=== PATIENT | female | born 1990 | race Caucasian/White ===

== ENCOUNTER → 2016-12-11 | Outpatient (CLI) | payer BC ==
--- NOTE | 2016-12-11 08:12 | US ---
EXAMINATION TYPE: US OB <= 14 wk fetus DATE OF EXAM: 12/11/2016 7:51 AM COMPARISON: NONE CLINICAL HISTORY: 26-year-old female Z36 CONFIRM DATES. Date of LMP: 10/01/2016 EXAM PERFORMED: Transabdominal scanning. FINDINGS: EXAM MEASUREMENTS: GESTATIONAL AGE / DATING Physician Established: (10 weeks/1 days) EDC: 07/08/2017 Dates by LMP: (10 weeks/1 days) EDC: 07/08/2017 Dates by First Scan: this is first scan here Dates by Current Scan for: (10 weeks/6 days) EDC: 07/03/2017 MATERNAL ANATOMY Uterus: 11.5 x 5.6 x 8.3 cm Right Ovary: 2.6 x 1.6 x1.7cm Left Ovary: 3.4 x 2.8 x 2.0 cm Post CDS / Adnexa: wnl Presence of free fluid: none Presence of subchorionic bleed: small anechoic area 1.4 x 0.6 x 2.4 cm along the caudal margin of the gestational sac. GESTATION / SURVEY CRL: 3.9 cm (10 weeks/6 days) Yolk Sac (normal less than 6mm): not seen Heart Rate: 159 bpm Rhythm: Normal IUP: Viable IUP IMPRESSION: 1. Single live intrauterine with established gestational age of 10 weeks 1 day by LMP. Curr ent ultrasound biometry is 10 weeks 6 days by crown-rump length. 2. Small 2.4 cm perigestational bleed inferiorly. 3. Complete survey recommended at 18-20 weeks.
[2016-12-11 08:45] LABS: CH 30.3; CHCM 34.7; HCT 38.6 % (34.0-46.0); HDW 2.41; HGB 13.2 gm/dL (11.4-16.0); MCH 30.1 pg (25.0-35.0); MCHC 34.3 g/dL (31.0-37.0); MCV 87.6 fL (80.0-100.0); Mean Platelet Volume 6.9; RBC 4.41 m/uL (3.80-5.40); RDW 12.5 % (11.5-15.5); WBC 6.6 k/uL (3.8-10.6)
[2016-12-11 08:58] LABS: Glucose 76 mg/dL (74-99); Non-African American GFR(MDRD) >60 (>60 ml/min/1.73 sqM)
[2016-12-11 09:28] LABS: Hepatitis B Surface Ag Index 0.08
[2016-12-15 05:44] LABS: HIV-1/HIV-2 Ab Screen NONREAC (NON REAC)
== END | disposition home or self-care (01) ==
LOC: RADUSWWP 07:31
PROVIDERS: ATTEND Obstetrics & Gynecology
DX: O26.811 Pregnancy related exhaustion and fatigue, first trimester (principal); Z3A.11 11 weeks gestation of pregnancy
CPT/HCPCS: 36415; 76801; 82565; 82947; 85027; 86762; 86780; 86850; 86900; 86901; 87340; 87389

== ENCOUNTER → 2017-02-12 | Outpatient (CLI) | payer BC ==
--- NOTE | 2017-02-12 12:22 | US ---
EXAMINATION TYPE: US OB anatomy transabd DATE OF EXAM: 02/12/2017 10:37 AM COMPARISON: December 11, 2016 first trimester ultrasound HISTORY: O36.62X0 Large for Dates TECHNIQUE: Transabdominal (TA) EXAM MEASUREMENTS: GESTATIONAL AGE / DATING Physician Established: not established EDC: not written Dates by LMP: (19 weeks/1 days) EDC: 07/08/2017 Dates by First Scan: (19 weeks/6 days) EDC: 07/03/2017 Dates by Current Scan for: (18 weeks/5 days) EDC: 07/11/2017 SURVEY IUP: Single PLACENTA: Posterior PREVIA: No previa CALLY: 15 cm Normal CERVICAL LENGTH (transabdominal: norm > 3.0cm): 3.6 cm BIOMETRY PRESENTATION: Breech LIE: Longitudinal BPD: 4.1 cm 18 weeks / 2 days HC: 15.5 cm 18 weeks / 3 days AC: 13.6 cm 19 weeks / 0 days FL: 3.0 cm 19 weeks / 1 days ESTIMATED WEIGHT IN GRAMS: 268 grams ESTIMATED WEIGHT IN LBS/OZS: 0 lbs. 9 oz. WEIGHT PERCENTAGE BASED ON ESTABLISHED DATE: 37 % HC/AC: 1.1 Normal FL/AC: 21 Normal HEART RATE: 145 bpm RHYTHM: Normal ANATOMY SEEN (within normal limits): * Lateral Vent (< 1 cm) 0.4 cm * Cisterna Magna (< 1.1 cm) 0.3 cm * Nuchal Fold (< 0.6 cm) 0.2 cm * Cerebellum (varies with age) 18.9 cm Choroid Plexus (bilateral) Midline Falx Cavus Septi Pellucidi Four Chamber Heart Outflow tracts: LVOT/RVOT Stomach Situs Nose / Lips Diaphragm Kidneys (bilateral) Bladder Cord Insert Three Vessel Cord Longitudinal Spine Transverse Spine Arms (bilateral) Legs (bilateral) viable IUP, anterior placenta, age appropiate Single live intrauterine gestation is redemonstrated. The breech presentation to fetus is currently s een. There is no ultrasound evidence for placenta previa. Amniotic fluid index is within normal limit s. biometry measurements are concordant felt within normal limits. During real-time scanning no anatomical abnormality is identified. Still images saved show poor visualization of bilateral kidney s is suboptimal visualization of nose and lips as well as 4 chamber heart and outflow tracts. IMPRESSION: As above
== END | disposition home or self-care (01) ==
LOC: RADUSWWP 09:35
PROVIDERS: ATTEND Obstetrics & Gynecology
DX: O36.62X0 Maternal care for excessive fetal growth, second trimester, not applicable or unspecified (principal); Z3A.19 19 weeks gestation of pregnancy
CPT/HCPCS: 76811

== ENCOUNTER → 2017-03-26 | Outpatient (CLI) | payer BC ==
[2017-03-26 11:19] LABS: CH 30.8; HCT 32.3 % (34.0-46.0); HDW 2.66; HGB 11.2 gm/dL (11.4-16.0); MCH 30.7 pg (25.0-35.0); MCHC 34.7 g/dL (31.0-37.0); MCV 88.6 fL (80.0-100.0); Mean Platelet Volume 7.3; RBC 3.64 m/uL (3.80-5.40); WBC 11.7 k/uL (3.8-10.6)
== END | disposition home or self-care (01) ==
LOC: LABWHC1 09:57
PROVIDERS: ATTEND Obstetrics & Gynecology
DX: Z34.92 Encounter for supervision of normal pregnancy, unspecified, second trimester (principal); Z3A.00 Weeks of gestation of pregnancy not specified
CPT/HCPCS: 36415; 82950; 85027

== ENCOUNTER 2017-04-25 19:32 | Emergency (ER) | payer BC ==
[2017-04-25] MEDS ORDERED: ACETAMINOPHEN TAB 325 MG TAB PO STA (20:06)
--- NOTE | 2017-04-25 20:08 | ED ---
Fever HPI - General Chief Complaint: Fever Stated Complaint: fever/29 wks Time Seen by Provider: 04/25/17 19:45 Source: patient, RN notes reviewed Mode of arrival: ambulatory Limitations: no limitations - History of Present Illness Initial Comments: Patient is a 27-year-old female presents to the emergency room for evaluation of fever. Patient is . Patient states about 29 weeks . Patient states since last night so having on and off fevers. Patient states been taking Tylenol with no relief of symptoms. Patient states she has been having all over body aches, headache and fatigue. Patient states she has a slight cough. Patient denies ear pain, throat pain, abdominal pain, nausea, vomiting, pain or burning during urination, trouble urinating or blood in urine. Patient states she still is feeling the baby move. Patient denies vaginal bleeding or abnormal vaginal discharge. Patient denies neck pain. Patient denies changes in vision. Patient states she took Tylenol around 5:30 this evening and her fever went up instead of down. Patient states because of fever went up she thought she should be evaluated here. - Related Data Home Medications Medication Instructions Recorded Confirmed Old-Qwwx-Jimhh Acid 1 cap PO DAILY 04/25/17 04/25/17 [-U Capsule (formulary)] Previous Rx's Medication Instructions Recorded Cephalexin [Keflex] 500 mg PO Q6HR 7 Days 04/25/17 Allergies Allergy/AdvReac Type Severity Reaction Status Date / Time No Known Allergies Allergy Verified 04/25/17 19:53 Review of Systems ROS Statement: Those systems with pertinent positive or pertinent negative responses have been documented in the HPI. ROS Other: All systems not noted in ROS Statement are negative. Past Medical History Past Medical History: No Reported History History of Any Multi-Drug Resistant Organisms: None Reported Past Surgical History: No Surgical Hx Reported Past Psychological History: No Psychological Hx Reported Smoking Status: Never smoker Past Alcohol Use History: None Reported Past Drug Use History: None Reported General Exam - General Exam Comments Initial Comments: Sitting in exam room, no acute distress. Limitations: no limitations General appearance: alert, in no apparent distress Head exam: Present: atraumatic, normocephalic, normal inspection Eye exam: Present: normal appearance, PERRL, EOMI Pupils: Present: normal accommodation ENT exam: Present: normal exam, mucous membranes moist Neck exam: Present: normal inspection, full ROM. Absent: tenderness, lymphadenopathy Respiratory exam: Present: normal lung sounds bilaterally. Absent: respiratory distress Cardiovascular Exam: Present: normal rhythm, tachycardia, normal heart sounds Extremities exam: Present: normal inspection Back exam: Present: normal inspection Neurological exam: Present: alert, oriented X3, CN II-XII intact, normal gait Psychiatric exam: Present: normal affect, normal mood Skin exam: Present: warm, dry, intact, normal color. Absent: rash Course Vital Signs 04/25/17 04/25/17 04/25/17 19:50 22:22 22:56 Temperature 100.2 F H 98.4 F 98.4 F Pulse Rate 117 H 90 85 Respiratory 18 16 16 Rate Blood Pressure 128/67 127/78 108/70 O2 Sat by Pulse 97 97 97 Oximetry Medical Decision Making - Medical Decision Making Patient is a 27-year-old female presents to the emergency room for evaluation of fever. Patient's WBC significantly elevated. heart tones within normal limits. Patient noted to have urinary tract infection. Patient denies flank pain or abdominal pain. Patient given 2 g of Rocephin IV and will be sent home with antibiotics. Advised patient to return for any worsening symptoms. Patient states she understands everything that was discussed with her. Case discussed with Dr. Shore. - Lab Data Result diagrams: 04/25/17 20:29 04/25/17 20:29 Lab Results 04/25/17 04/25/17 04/25/17 Range/Units 20:29 20:29 20:29 WBC 28.1 H* (3.8-10.6) k/uL RBC 3.48 L (3.80-5.40) m/uL Hgb 10.6 L (11.4-16.0) gm/dL Hct 29.6 L (34.0-46.0) % MCV 85.0 (80.0-100.0) fL MCH 30.5 (25.0-35.0) pg MCHC 35.9 (31.0-37.0) g/dL RDW 12.2 (11.5-15.5) % Plt Count 290 (150-450) k/uL Neutrophils % 90 % Lymphocytes % 4 % Monocytes % 5 % Eosinophils % 0 % Basophils % 0 % Neutrophils # 25.2 H (1.3-7.7) k/uL Lymphocytes # 1.2 (1.0-4.8) k/uL Monocytes # 1.3 H (0-1.0) k/uL Eosinophils # 0.0 (0-0.7) k/uL Basophils # 0.0 (0-0.2) k/uL PT (9.0-12.0) sec INR (<1.1) APTT (22.0-30.0) sec Sodium 128 L (137-145) mmol/L Potassium 3.7 (3.5-5.1) mmol/L Chloride 102 (98-107) mmol/L Carbon Dioxide 18 L (22-30) mmol/L Anion Gap 8 mmol/L BUN 7 (7-17) mg/dL Creatinine 0.59 (0.52-1.04) mg/dL Est GFR (MDRD) Af Amer >60 (>60 ml/min/1.73 sqM) Est GFR (MDRD) Non-Af >60 (>60 ml/min/1.73 sqM) Glucose 95 (74-99) mg/dL Plasma Lactic Acid Rick 0.7 (0.7-2.0) mmol/L Calcium 8.3 L (8.4-10.2) mg/dL Total Bilirubin 0.9 (0.2-1.3) mg/dL AST 30 (14-36) U/L ALT 44 (9-52) U/L Alkaline Phosphatase 143 H (38-126) U/L Total Creatine Kinase (30-135) U/L CK-MB (CK-2) (0.0-2.4) ng/mL CK-MB (CK-2) Rel Index Troponin I (0.000-0.034) ng/mL Total Protein 6.0 L (6.3-8.2) g/dL Albumin 2.9 L (3.5-5.0) g/dL Urine Color Urine Appearance (Clear) Urine pH (5.0-8.0) Ur Specific [place] (1.001-1.035) Urine Protein (Negative) Urine Glucose (UA) (Negative) Urine Ketones (Negative) Urine Blood (Negative) Urine Nitrite (Negative) Urine Bilirubin (Negative) Urine Urobilinogen (<2.0) mg/dL Ur Leukocyte Esterase (Negative) Urine WBC (0-5) /hpf Ur Squamous Epith Cells (0-4) /hpf Amorphous Sediment (None) /hpf Urine Bacteria (None) /hpf Hyaline Casts (0-2) /lpf 04/25/17 04/25/17 04/25/17 Range/Units 20:29 20:29 20:29 WBC (3.8-10.6) k/uL RBC (3.80-5.40) m/uL Hgb (11.4-16.0) gm/dL Hct (34.0-46.0) % MCV (80.0-100.0) fL MCH (25.0-35.0) pg MCHC (31.0-37.0) g/dL RDW (11.5-15.5) % Plt Count (150-450) k/uL Neutrophils % % Lymphocytes % % Monocytes % % Eosinophils % % Basophils % % Neutrophils # (1.3-7.7) k/uL Lymphocytes # (1.0-4.8) k/uL Monocytes # (0-1.0) k/uL Eosinophils # (0-0.7) k/uL Basophils # (0-0.2) k/uL PT 9.8 (9.0-12.0) sec INR 1.0 (<1.1) APTT 28.5 (22.0-30.0) sec Sodium (137-145) mmol/L Potassium (3.5-5.1) mmol/L Chloride (98-107) mmol/L Carbon Dioxide (22-30) mmol/L Anion Gap mmol/L BUN (7-17) mg/dL Creatinine (0.52-1.04) mg/dL Est GFR (MDRD) Af Amer (>60 ml/min/1.73 sqM) Est GFR (MDRD) Non-Af (>60 ml/min/1.73 sqM) Glucose (74-99) mg/dL Plasma Lactic Acid Rick (0.7-2.0) mmol/L Calcium (8.4-10.2) mg/dL Total Bilirubin (0.2-1.3) mg/dL AST (14-36) U/L ALT (9-52) U/L Alkaline Phosphatase (38-126) U/L Total Creatine Kinase 35 (30-135) U/L CK-MB (CK-2) 0.5 (0.0-2.4) ng/mL CK-MB (CK-2) Rel Index 1.4 Troponin I <0.012 (0.000-0.034) ng/mL Total Protein (6.3-8.2) g/dL Albumin (3.5-5.0) g/dL Urine Color Light Yellow Urine Appearance Cloudy H (Clear) Urine pH 6.5 (5.0-8.0) Ur Specific [place] 1.002 (1.001-1.035) Urine Protein Negative (Negative) Urine Glucose (UA) Negative (Negative) Urine Ketones Negative (Negative) Urine Blood Negative (Negative) Urine Nitrite Negative (Negative) Urine Bilirubin Negative (Negative) Urine Urobilinogen <2.0 (<2.0) mg/dL Ur Leukocyte Esterase Large H (Negative) Urine WBC 48 H (0-5) /hpf Ur Squamous Epith Cells 2 (0-4) /hpf Amorphous Sediment Occasional H (None) /hpf Urine Bacteria Many H (None) /hpf Hyaline Casts 1 (0-2) /lpf Disposition Clinical Impression: Urinary tract infection Disposition: HOME SELF-CARE Condition: Good Instructions: Urinary Tract Infection in (ED) Additional Instructions: Taking antibiotics as directed. Tylenol for fever. Drink plenty of fluids. Please follow up with [facility]. If any new symptom arises or symptoms worsen, return to ER as soon as possible. Prescriptions: Cephalexin [Keflex] 500 mg PO Q6HR 7 Days Referrals: Cielo Solis MD [Primary Care Provider] - 1-2 days Christian Mark MD [STAFF PHYSICIAN] - 1-2 days Time of Disposition: 21:33
[2017-04-25] MEDS: SODIUM CHLORIDE 0.9% 500 ML IV SCH ×2 (20:13→20:14)
[2017-04-25 20:41] LABS: Basophils % (A) 0 %; CH 29.9; CHCM 35.4; Eosinophils % (A) 0 %; HCT 29.6 % (34.0-46.0); HDW 2.96; HGB 10.6 gm/dL (11.4-16.0); Luc # (Auto) 0.43; Luc % (Auto) 2; Lymphocytes # (A) 1.2 k/uL (1.0-4.8); Lymphocytes % (A) 4 %; MCH 30.5 pg (25.0-35.0); MCHC 35.9 g/dL (31.0-37.0); Mean Platelet Volume 7.5; Monocytes # (A) 1.3 k/uL (0-1.0); Monocytes % (A) 5 %; Neutrophils # (A) 25.2 k/uL (1.3-7.7); Neutrophils % (A) 90 %; RBC 3.48 m/uL (3.80-5.40); RDW 12.2 % (11.5-15.5); WBC (Perox) 29.97
[2017-04-25 20:48] LABS: Amorphous Sediment,Urine Occasional /hpf; Appearance,Urine Cloudy (Clear); Bacteria,Urine Many /hpf; Bilirubin,Urine Negative (Negative); Glucose,Urine (UA) Negative (Negative); Ketones,Urine Negative (Negative); Leukocyte Esterase,Urine Large (Negative); Nitrite,Urine Negative (Negative); PH, Urine 6.5 (5.0-8.0); Particle Count 19635; Protein,Urine Negative (Negative); Specific Gravity,Urine 1.002 (1.001-1.035); Squamous Epithelial Cell,Urine 2 /hpf (0-4); UA Billing (MACRO vs. MICRO) MICRO; Urobilinogen,Urine <2.0 mg/dL (<2.0); WBC,Urine 48 /hpf (0-5)
[2017-04-25 20:50] LABS: Partial Thromboplastin Time 28.5 sec (22.0-30.0); Prothrombin Time 9.8 sec (9.0-12.0)
[2017-04-25 20:51] LABS: WBC 28.1 k/uL (3.8-10.6)
[2017-04-25] MEDS ORDERED: cefTRIAXone 2,000 MG in SODIUM CHLORIDE 0.9% 100 ML IVPB STA (20:53)
[2017-04-25 21:01] LABS: ALT 44 U/L (9-52); AST 30 U/L (14-36); Alkaline Phosphatase 143 U/L (38-126); Anion Gap 8 mmol/L; Blood Urea Nitrogen 7 mg/dL (7-17); Calcium 8.3 mg/dL (8.4-10.2); Carbon Dioxide 18 mmol/L (22-30); Chloride 102 mmol/L (98-107); Creatine Kinase 35 U/L (30-135); Glucose 95 mg/dL (74-99); Non-African American GFR(MDRD) >60 (>60 ml/min/1.73 sqM); Potassium 3.7 mmol/L (3.5-5.1); Sodium 128 mmol/L (137-145); Total Bilirubin 0.9 mg/dL (0.2-1.3)
[2017-04-25 21:14] LABS: Creatine Kinase MB 0.5 ng/mL (0.0-2.4); Troponin I <0.012 ng/mL (0.000-0.034)
[2017-04-25 22:23] VITALS: RESP 16; TEMP 98.4
[2017-04-25 22:57] VITALS: BP 108/70; PULSE 85
== END 2017-04-25 22:56 | disposition home or self-care (01) ==
LOC: EC 19:32
DX: O23.43 Unspecified infection of urinary tract in pregnancy, third trimester (principal); O99.89 Other specified diseases and conditions complicating pregnancy, childbirth and the puerperium; R00.0 Tachycardia, unspecified; Z3A.29 29 weeks gestation of pregnancy; Z79.899 Other long term (current) drug therapy
CPT/HCPCS: 99284; 96365; 96366; 96361; 36415; 93005; 80053; 82550; 82553; 83605; 84484; 85025; 85610; 85730; 81001; 87040; 87086; J0696

== ENCOUNTER 2017-07-06 21:40 | Inpatient (IN) | payer BC ==
[2017-07-06] MEDS ORDERED: LIDOCAINE 1% (PF) 10 MG/ML (30 ML SDV) SQ PRN (22:23)
[2017-07-06] MEDS ORDERED: OXYTOCIN 10 UNIT/ML 1 ML VIAL IM PRN (22:23)
[2017-07-06] MEDS ORDERED: CARBOPROST TROMETHAMINE 250 MCG/ML 1 ML AMP IM PRN (22:23)
[2017-07-06] MEDS ORDERED: METHYLERGONOVINE 0.2 MG/ML 1 ML AMP IM PRN (22:23)
[2017-07-06] MEDS ORDERED: TERBUTALINE 1 MG/ML VIAL SQ PRN (22:23)
[2017-07-06] MEDS ORDERED: OXYTOCIN 20 UNITS/1000 ML NS 1,000 ML IV SCH ×2 (22:30→22:45)
[2017-07-06 22:34] VITALS: BMI 27.8
[2017-07-06] MEDS ORDERED: AMPICILLIN 2,000 MG in SODIUM CHLORIDE 0.9% 100 ML IVPB STA (22:43)
[2017-07-06 22:44] LABS: Basophils % (A) 0 %; CH 29.6; CHCM 35.5; Eosinophils # (A) 0.1 k/uL (0-0.7); Eosinophils % (A) 0 %; HCT 35.3 % (34.0-46.0); HDW 2.75; HGB 12.2 gm/dL (11.4-16.0); Luc # (Auto) 0.24; Luc % (Auto) 2; Lymphocytes % (A) 15 %; MCHC 34.7 g/dL (31.0-37.0); MCV 83.7 fL (80.0-100.0); Mean Platelet Volume 8.5; Monocytes # (A) 0.7 k/uL (0-1.0); Monocytes % (A) 5 %; Neutrophils # (A) 10.3 k/uL (1.3-7.7); Neutrophils % (A) 77 %; RBC 4.22 m/uL (3.80-5.40); RDW 14.7 % (11.5-15.5); WBC 13.3 k/uL (3.8-10.6); WBC (Perox) 13.99
[2017-07-06] MEDS: LACTATED RINGERS 1,000 ML IV SCH (22:47)
--- NOTE | 2017-07-06 22:57 | P.HPOB ---
History of Present Illness H&P Date: 07/06/17 Chief Complaint: Contractions and leaking of fluid. This patient is a pleasant 27-year-old 2 para 0 female estimated date of confinement 07/08/2017 estimated gestational age 39-5/7 weeks who presents to labor and delivery with complaints of cramping and had some leaking of fluid that started about 11 this morning. Patient's care has been completely uncomplicated. Examination here shows positive amniosure and cervix is 5 cm dilated. I did rupture a fore bag and I did rupture her for clear fluid as well. Review of Systems Constitutional: Denies chills, Denies fever Respiratory: Denies cough Gastrointestinal: Reports heartburn Genitourinary: Reports Menstruation: Reports amenorrhea Past Medical History Past Medical History: No Reported History History of Any Multi-Drug Resistant Organisms: None Reported Additional Past Surgical History / Comment(s): Dilation and curettage. Past Anesthesia/Blood Transfusion Reactions: No Reported Reaction Past Psychological History: No Psychological Hx Reported Smoking Status: Never smoker Past Alcohol Use History: None Reported Past Drug Use History: None Reported - Past Family History Mother Family Medical History: Congestive Heart Failure (CHF), Diabetes Mellitus Father Family Medical History: Diabetes Mellitus Medications and Allergies Home Medications Medication Instructions Recorded Confirmed Type Xgy-Aysc-Uhgrs Acid 1 cap PO DAILY 04/25/17 07/06/17 History [-U Capsule (formulary)] Allergies Allergy/AdvReac Type Severity Reaction Status Date / Time No Known Allergies Allergy Verified 07/06/17 21:47 Exam - Vital Signs Vital signs: Vital Signs Temp Pulse Resp BP Pulse Ox 07/06/17 22:23 97.0 F L 82 18 128/86 98 Intake and Output 07/06/17 07/06/17 07/06/17 06:59 14:59 22:59 Other: Weight 85.729 kg Patient Weight 07/07/17 06:59 Weight 85.729 kg - OBG Physical Exam Abdomen: bowel sounds normal, no diffuse tenderness, no bruit present, no guarding noted, no hepatomegaly, no splenomegaly, no mass Vulva: both: normal Cervix: no lesion (Quinton is 5 cm dilated with a bulging membranes -2 station), no discharge Uterus: enlarged (Fundal height is 39 cm) Results blood work shows she is A positive, rubella low positive, hepatitis B negative, HIV nonreactive, RPR nonreactive, Glucola was normal, group B strep was negative, ultrasounds have been normal. Result Diagrams: 07/06/17 22:30 Abnormal Lab Results - Last 24 Hours (Table) 07/06/17 Range/Units 22:30 WBC 13.3 H (3.8-10.6) k/uL Neutrophils # 10.3 H (1.3-7.7) k/uL Assessment and Plan (1) Third trimester Narrative/Plan: This is a pleasant 27-year-old 2 para 0 female 39-5/7 weeks' gestation with spontaneous rupture membranes and active labor. Since the patient's membranes may have been leaking since 11 this morning I am prophylactically starting her on antibiotics, Pitocin augmentation of labor as necessary and anticipate vaginal delivery. Status: Acute (2) Normal labor Status: Acute
[2017-07-06] MEDS ORDERED: BUPIVACAINE (PF) 0.25% 25 ML, fentaNYL (PF) 200 MCG in SODIUM CHLORIDE 0.9% 71 ML EPIDURAL ONE (23:25)
[2017-07-07] MEDS: LACTATED RINGERS 1,000 ML IV SCH ×4 (02:07→20:23)
[2017-07-07] MEDS: AMPICILLIN 1,000 MG in SODIUM CHLORIDE 0.9% 50 ML IVPB SCH ×2 (03:03→21:27)
--- NOTE | 2017-07-07 06:14 | P.MSEPDOC ---
Presenting Problems - Arrival Data Date of Arrival on Unit: 07/06/17 Time of Arrival on Unit: 21:42 Mode of Transport: Wheelchair - Complaint OB-Reason for Admission/Chief Complaint: Possible Onset of Labor Comment: Reports SROM at 1100 this morning. Medical History - Information : 2 Para: 0 Term: 0 : 0 Abortions: Spontaneous or Elective: 1 Number of Living Children: 0 - Gestational Age Expected Date of Delivery: 07/08/17 Gestational Age by AZRA (wks/days): 39 Weeks and 6 Days Review of Systems - Review of Systems Constitutional: No problems Breast: No problems ENT: No problems Cardiovascular: No problems Respiratory: No problems Gastrointestinal: No problems Genitourinary: No problems Musculoskeletal: No problems Neurological: No problems Skin: No problems Vital Signs - Temperature Temperature: 97.0 F Temperature Source: Temporal Artery Scan - Pulse Right Pulse Rate: 89 Pulse Assessment Method: Pulse Oximetry - Respirations Respiratory Rate: 18 Oxygen Delivery Method: Room Air O2 Sat by Pulse Oximetry: 98 - Blood Pressure Right Arm Blood Pressure: 128/86 Blood Pressure Mean: 100 Blood Pressure Source: Automatic Cuff Medical Screen Scoring (Pre) - Cervical Exam Dilation: 4-7 cm = 2 Effacement: More than 50% = 2 Membranes: Ruptured = 3 - Uterine Contractions Frequency: > 5 minutes apart = 1 Duration: N/A Intensity: N/A - Maternal Vital Signs Maternal Temperature: N/A Maternal Blood Pressure: N/A Signs of Preeclampsia: N/A Maternal Respirations: N/A - Maternal Trauma Maternal Trauma: N/A - Assessment Baseline FHR: 135 Heart Rate - NICHD Category: Category I (Normal) = 0 NST: Reactive Position: N/A Station: N/A - Total Score Total Score (Pre): 8 - Level of Risk Level of Risk: Medium (6-9) Physician Notification (Pre) - Physician Notified Physician Notified Date: 07/06/17 Physician Notified Time: 22:05 Physician/Practitioner Notifed:: Dr. Mark Spoke With: Dr. Mark New Order Received: Yes (admit pt) - Notification Comment Comment: Pt sent to triage per Dr. Mark. Dr. Mark already aware of pt c/o ruptured membranes. Dr. Mark notified of positive amnisure results and cervical exam. Orders to admit pt with antibotics and pit given. Dr. Mark coming in. Disposition - Disposition OB Disposition: Admit Transferred to:: suite 3 I agree with the RN Medical Screening Exam: Yes Risk & Benefit of care provided described in d/c instruction: Yes Diagnosis: ENCOUNTER FOR FULL-TERM UNCOMPLICATED DELIVERY
[2017-07-07] MEDS ORDERED: CITRIC ACID-SODIUM CITRATE 15 ML CUP PO ONE (07:44)
[2017-07-07] MEDS ORDERED: ceFAZolin 2 GM in SODIUM CHLORIDE 0.9% 100 ML IVPB ONE (07:44)
[2017-07-07] MEDS ORDERED: fentaNYL (PF) 50 MCG/ML 2 ML AMP ONE (07:55)
[2017-07-07] MEDS ORDERED: OXYTOCIN 10 UNIT/ML 1 ML VIAL ONE (07:55)
[2017-07-07] MEDS ORDERED: SUCCINYLCHOLINE CHLORIDE 100 MG/5 ML SYR IV ONE (07:55)
[2017-07-07] MEDS ORDERED: METHYLERGONOVINE 0.2 MG/ML 1 ML AMP ONE (07:55)
[2017-07-07] MEDS ORDERED: MORPHINE SULFATE (PF) 0.3 MG/0.3 ML SYR ONE (07:55)
[2017-07-07] MEDS ORDERED: HYDROmorphone (PF) 1 MG/ML ONE (07:55)
[2017-07-07] MEDS ORDERED: PROPOFOL 10 MG/ML 20 ML VIAL IV ONE (07:55)
[2017-07-07] MEDS ORDERED: KETOROLAC 30 MG/ML 1 ML VIAL ONE (07:55)
[2017-07-07] MEDS ORDERED: diphenhydrAMINE 50 MG/ML 1 ML VIAL IVP PRN ×2 (09:00→09:14)
[2017-07-07] MEDS ORDERED: HYDROmorphone PCA 5 MG/25 ML SYRINGE IV PRN (09:00)
[2017-07-07] MEDS ORDERED: NALOXONE 0.4 MG/ML 1 ML VIAL IV PRN ×2 (09:00→09:14)
[2017-07-07] MEDS ORDERED: MEASLES-MUMPS-RUBELLA VACC/PF 12,500 UNIT/0.5 ML VIAL SQ ONE (09:00)
[2017-07-07] MEDS ORDERED: KETOROLAC 30 MG/ML 1 ML VIAL IVP PRN (09:00)
[2017-07-07] MEDS ORDERED: SIMETHICONE 80 MG CHEWABLE PO PRN (09:00)
[2017-07-07] MEDS ORDERED: Acetaminophen-Codeine 300-30mg TAB PO PRN (09:00)
[2017-07-07] MEDS ORDERED: diphenhydrAMINE 25 MG CAP PO PRN (09:00)
[2017-07-07] MEDS ORDERED: METOCLOPRAMIDE 5 MG/ML 2 ML VIAL IVP PRN (09:00)
[2017-07-07] MEDS ORDERED: ACETAMINOPHEN TAB 325 MG TAB PO PRN (09:00)
[2017-07-07] MEDS ORDERED: ZOLPIDEM 5 MG TAB PO PRN (09:00)
[2017-07-07] MEDS ORDERED: OXYTOCIN 20 UNITS/1000 ML NS 1,000 ML IV SCH (09:00)
[2017-07-07] MEDS ORDERED: ONDANSETRON 4 MG/2 ML VIAL IVP PRN (09:00)
--- NOTE | 2017-07-07 09:19 | P.OP ---
Date of Procedure: 07/07/17 Preoperative Diagnosis: #1: 39-5/7 weeks . #2: Spontaneous rupture membranes in labor. #3: Cephalopelvic dystocia. Postoperative Diagnosis: Same Anesthesia: GETA (Patient had a ineffective spinal and subsequently had general endotracheal anesthesia), spinal Surgeon: Christian Mark [facility] Coordinator #1: Monica Nieto Estimated Blood Loss (ml): 1,200 Pathology: other (Placenta) Condition: stable Disposition: floor Indications for Procedure: Please see dictated H&P for intimate details of this patient's admission. In brief summary this is a pleasant 27-year-old 2 para 0 female 39-5/7 weeks' gestation was admitted to labor and delivery with spontaneous rupture membranes and active labor. She is 5 cm dilated on admission and she does get an epidural for pain control. Patient does get to complete and pushes for over 1 hour without descent of the head past 0 station. heart tones are reassuring. At this time I discussed with the patient and her my concerns for cephalopelvic dystocia and wish to proceed with section. Patient does understand the surgery and risks including risks of infection, bleeding, possible injury to bowel, bladder, vessels, and/or other organs. Patient stands risk of DVT and pulmonary embolism. All the patient's questions are answered and a written consent is obtained. Operative Findings: This was a vigorous viable female Apgars were 8 and 9 delivery time was 0825. Description of Procedure: This patient has a Jarrell catheter placed to straight drain. She is subsequently taken to the operating room where she is sat up and the epidural catheter is removed and spinal anesthesia is administered. Unfortunately after a prolonged period of waiting the spinal is ineffective completely on the right side. At that time I discussed with the patient the need to have general anesthesia and she understands. Patient at this time has abdominal prep and drape. After adequate rapid sequence general endotracheal anesthesia scalpel was taken and a Pfannenstiel skin incision is then made. A second scalpel is taken down to the fascia and the fascia scored with a knife. Fascial incision extended bilaterally using the Miller scissors. Fascia is dissected off the rectus muscles sharply. Rectus muscles are and the peritoneum was identified and entered sharply. Peritoneal incision extended superior and inferior without difficulty. Bladder blade is then placed. The bladder peritoneum was taken off the lower uterine segment. A low transverse uterine incision is then made. Using a hemostat I gently into the uterine cavity is loss of clear fluid. This is in the occiput transverse presentation and has easily lifted up out of the pelvis and is not engaged. With gentle fundal pressure. Deliver the infant's head. Mouth and nares are bulb suctioned and there is no evidence of a nuchal cord. I then deliver the rest this infant's body. This is a vigorous viable female infant Apgars are 8 and 9 delivery time was 0825 hours. After delivery of the infant the umbilical cord is doubly clamped and cut. The placenta is then manually extracted intact. Uterine incision is then demarcated with Franco clamps and closed using 0 Vicryl running locked fashion 2 layers. Excellent hemostasis is noted the uterus did have a lot of atony at this time uterine massage is undertaken, Pitocin was given one dose of Methergine. Due to this atony the estimated blood loss from the surgery is approximately 1200 mL. Uterus does appear to firm up well the bleeding does subside after this. The outer peritoneum was then reapproximated using a 3-0 Vicryl. Excess fluid is removed from the abdomen and pelvis. Uterus tubes and ovaries appear normal for term gestation. Uterus placed back into the abdomen. Parietal peritoneum was then identified and closed in 0 Vicryl running fashion. Rectus muscles are reapproximated in 0 Vicryl interrupted fashion. Fascia is then closed using 0 PDS in a running fashion. Fascial incision is intact and hemostatic. Subcutaneous tissues and closed using 3-0 Vicryl. Skin is and closed using jose. Excellent reapproximation is noted. Sterile dressing is applied. All counts are correct 3. There are no complications other than the transient atony. Infant and mother are taken to the birthing suite in satisfactory condition.
[2017-07-07] MEDS: ceFAZolin 2 GM in SODIUM CHLORIDE 0.9% 100 ML IVPB SCH (17:00)
[2017-07-07] MEDS: METHYLERGONOVINE 0.2 MG TAB PO SCH (19:19)
[2017-07-07] MEDS: SENNOSIDES-DOCUSATE SODIUM 1 EACH TAB PO SCH (20:01)
[2017-07-07] MEDS: Acetaminophen-Codeine 300-30mg TAB PO PRN (20:29)
[2017-07-08] MEDS: IBUPROFEN 600 MG TAB PO PRN ×2 (00:04→19:29)
[2017-07-08] MEDS: METHYLERGONOVINE 0.2 MG TAB PO SCH ×3 (00:04→19:46)
[2017-07-08] MEDS: ceFAZolin 2 GM in SODIUM CHLORIDE 0.9% 100 ML IVPB SCH (01:29)
[2017-07-08] MEDS: Acetaminophen-Codeine 300-30mg TAB PO PRN ×3 (03:04→22:38)
[2017-07-08] MEDS: LACTATED RINGERS 1,000 ML IV SCH (03:09)
--- NOTE | 2017-07-08 06:40 | P.PNOBGPC ---
Subjective - Subjective Patient reports: Reports appetite normal, Reports voiding normally, Reports pain well controlled, Reports ambulating normally : doing well Objective - Vital Signs Latest vital signs: Vital Signs Temp Pulse Resp BP Pulse Ox 07/08/17 04:00 99.1 F 84 16 97/84 07/08/17 00:00 98.5 F 81 16 102/53 07/07/17 20:00 97.7 F 76 16 103/55 97 07/07/17 16:46 95 07/07/17 15:45 97.9 F 86 16 108/61 95 07/07/17 14:14 95 07/07/17 11:00 98 F 97 16 115/66 07/07/17 10:30 66 16 121/65 07/07/17 10:14 98 07/07/17 10:00 98 F 69 16 123/71 100 07/07/17 09:42 75 16 118/70 98 07/07/17 09:29 68 15 115/63 97 07/07/17 09:22 71 16 122/64 96 07/07/17 09:14 98 07/07/17 09:01 97.1 F L 79 16 121/74 93 L Intake and Output 07/07/17 07/07/17 07/08/17 14:59 22:59 06:59 Output Total 1150 1600 1900 Balance -1150 -1600 -1900 Output: Urine 1150 1600 1900 Other: Voiding Method Indwelling Catheter Indwelling Catheter # Voids 1 # Emeses 1 - Exam Lungs: bilateral: normal Chest: Normal S1, Normal S2 Extremities: Present: normal Abdomen: Present: normal appearance, soft. Absent: distention, tenderness Incision: Present: normal, dry, intact Uterus: Present: normal, firm Assessment and Plan (1) Third trimester Narrative/Plan: day #1. Patient is resting without complaints. Vital signs are stable and she is afebrile. Uterus is firm nontender and her incision is intact and dry. CBC is pending at this time. Plan today is to continue routine postoperative care and possibly discharge home tomorrow. Check a CBC and allow patient to shower. Current Visit: Yes Status: Acute Code(s): Z34.93 - ENCNTR FOR SUPRVSN OF NORMAL PREG, UNSP, THIRD TRIMESTER SNOMED Code(s): 08412708 (2) Normal labor Current Visit: Yes Status: Acute Code(s): O80 - ENCOUNTER FOR FULL-TERM UNCOMPLICATED DELIVERY; Z37.9 - OUTCOME OF DELIVERY, UNSPECIFIED SNOMED Code(s ): 44971168
[2017-07-08 08:06] LABS: Basophils # (A) 0.1 k/uL (0-0.2); Basophils % (A) 0 %; CH 29.7; CHCM 34.7; Eosinophils # (A) 0.1 k/uL (0-0.7); Eosinophils % (A) 0 %; HCT 28.9 % (34.0-46.0); HDW 2.64; Luc # (Auto) 0.18; Luc % (Auto) 1; Lymphocytes # (A) 2.1 k/uL (1.0-4.8); Lymphocytes % (A) 16 %; MCH 28.8 pg (25.0-35.0); MCHC 33.5 g/dL (31.0-37.0); MCV 85.9 fL (80.0-100.0); Mean Platelet Volume 8.4; Monocytes # (A) 0.7 k/uL (0-1.0); Monocytes % (A) 5 %; Neutrophils # (A) 10.3 k/uL (1.3-7.7); Neutrophils % (A) 77 %; RBC 3.36 m/uL (3.80-5.40); RDW 14.8 % (11.5-15.5); WBC 13.5 k/uL (3.8-10.6); WBC (Perox) 14.46
[2017-07-08 08:11] LABS: HGB 9.7 gm/dL (11.4-16.0)
[2017-07-08] MEDS: SENNOSIDES-DOCUSATE SODIUM 1 EACH TAB PO SCH ×2 (09:59→19:29)
--- NOTE | 2017-07-08 21:30 | P.PN ---
Progress Note - Text Date: 07/08/2017 Time: 2040 The patient is status post section Vital signs stable VAS: 0-10 Patient has no complaints of pain. The patient incurred some minimal itching yesterday, this itching is now subsiding. Pain meds to be managed by service.
[2017-07-09] MEDS: IBUPROFEN 600 MG TAB PO PRN ×4 (01:37→22:42)
[2017-07-09] MEDS: Acetaminophen-Codeine 300-30mg TAB PO PRN (04:45)
--- NOTE | 2017-07-09 06:35 | P.PNOBGPC ---
Subjective - Subjective Patient reports: Reports appetite normal, Reports voiding normally, Reports pain well controlled, Reports ambulating normally : doing well Objective - Vital Signs Latest vital signs: Vital Signs Temp Pulse Resp BP Pulse Ox 07/09/17 00:00 98.4 F 78 16 116/60 07/08/17 16:00 98.5 F 85 16 107/64 07/08/17 08:00 98.1 F 80 15 99/46 97 Intake and Output 07/08/17 07/08/17 07/09/17 14:59 22:59 06:59 Output Total 1500 Balance -1500 Output: Urine 1500 Other: # Voids 1 - Exam Lungs: bilateral: normal Chest: Normal S1, Normal S2 Extremities: Present: normal Abdomen: Present: normal appearance, soft. Absent: distention, tenderness Incision: Present: normal, dry, intact Uterus: Present: normal, firm - Labs Labs: Abnormal Lab Results - Last 24 Hours (Table) 07/08/17 Range/Units 06:40 WBC 13.5 H (3.8-10.6) k/uL RBC 3.36 L (3.80-5.40) m/uL Hgb 9.7 L D (11.4-16.0) gm/dL Hct 28.9 L (34.0-46.0) % Neutrophils # 10.3 H (1.3-7.7) k/uL Assessment and Plan (1) Third trimester Narrative/Plan: Postoperative day #2. Patient is resting without complaints. Vital signs are stable and she is afebrile. Uterus is firm, non-tender and she is having normal lochia. Incision is intact and dry. Hgb was 9.7. Patient is tolerating regular diet, ambulating, and urinating without difficulty. My impression is that this a normal postoperative course. Will continue routine postoperative course and discharge home tomorrow. Current Visit: Yes Status: Acute Code(s): Z34.93 - ENCNTR FOR SUPRVSN OF NORMAL PREG, UNSP, THIRD TRIMESTER SNOMED Code(s): 44643805 (2) Normal labor Current Visit: Yes Status: Acute Code(s): O80 - ENCOUNTER FOR FULL-TERM UNCOMPLICATED DELIVERY; Z37.9 - OUTCOME OF DELIVERY, UNSPECIFIED SNOMED Code(s ): 98398490
[2017-07-09] MEDS: SENNOSIDES-DOCUSATE SODIUM 1 EACH TAB PO SCH ×2 (10:08→20:03)
[2017-07-10] MEDS: Acetaminophen-Codeine 300-30mg TAB PO PRN (03:37)
--- NOTE | 2017-07-10 06:07 | P.PNOBGPC ---
Subjective - Subjective Patient reports: Reports appetite normal, Reports voiding normally, Reports pain well controlled, Reports ambulating normally : doing well Objective - Vital Signs Latest vital signs: Vital Signs Temp Pulse Resp BP Pulse Ox 07/10/17 00:00 98 F 78 18 111/74 99 07/09/17 16:00 98.0 F 82 16 105/74 07/09/17 08:00 98 F 73 16 104/49 98 - Exam Lungs: bilateral: normal Chest: Normal S1, Normal S2 Extremities: Present: normal Abdomen: Present: normal appearance, soft. Absent: distention, tenderness Incision: Present: normal, dry, intact Uterus: Present: normal, firm Assessment and Plan (1) Third trimester Narrative/Plan: Post operative day #2. Patient is resting without complaints. Vital signs are stable and she is afebrile. Uterus is firm nontender she's having normal lochia. My impression this is a normal course. Plan is to continue routine care discharge home today. Current Visit: Yes Status: Acute Code(s): Z34.93 - ENCNTR FOR SUPRVSN OF NORMAL PREG, UNSP, THIRD TRIMESTER SNOMED Code(s): 18623907 (2) Normal labor Current Visit: Yes Status: Acute Code(s): O80 - ENCOUNTER FOR FULL-TERM UNCOMPLICATED DELIVERY; Z37.9 - OUTCOME OF DELIVERY, UNSPECIFIED SNOMED Code(s ): 06468515
--- NOTE | 2017-07-10 06:14 | P.DS ---
Providers Date of admission: 07/06/17 22:02 Expected date of discharge: 07/10/17 Attending physician: Christian Mark Primary care physician: Christian Mark - Discharge Diagnosis(es) (1) Third trimester Current Visit: Yes Status: Acute (2) Normal labor Current Visit: Yes Status: Acute Hospital Course: Please see dictated H&P for intimate details of this patient's admission. Brief summary this is a pleasant 27-year-old 2 para 0 female estimated gestational age 39 weeks who presented to labor and delivery with spontaneous rupture membranes patient's subsequent goes on to have a primary low transverse section for cephalopelvic dystocia. Please see dictated operative note. patient does well and on #3 is felt to be stable for discharge home follow up with me in 1 week. Procedures: Primary low transverse section Patient Condition at Discharge: Good Plan - Discharge Summary New Discharge Prescriptions: New Acetaminophen-Codeine 300-30mg [Tylenol w/codeine #3] 1 - 2 each PO Q4HR PRN #30 tab PRN Reason: Mild Pain Ibuprofen [Motrin] 600 mg PO Q6HR PRN #40 tab PRN Reason: Mild Pain Or Fever >= 100.5 No Action Bwo-Hgjb-Rrkiy Acid [-U Capsule (formulary)] 1 cap PO DAILY Discharge Medication List Gpf-Kbfk-Xqhnh Acid [-U Capsule (formulary)] 1 cap PO DAILY 03/07 [History] Acetaminophen-Codeine 300-30mg [Tylenol w/codeine #3] 1 - 2 each PO Q4HR PRN # 30 tab 07/10/17 [Rx] Ibuprofen [Motrin] 600 mg PO Q6HR PRN #40 tab 07/10/17 [Rx] Follow up Appointment(s)/Referral(s): Christian Mark MD [Primary Care Provider] - 07/20/17 1:30 pm (Patient also has a post visit on August 22 at 8:45 AM.) Patient Instructions/Handouts: (DC) Activity/Diet/Wound Care/Special Instructions: No heavy lifting or strenuous activities for 6 weeks. No intercourse for 6 weeks. Please call if any fever, chills, excessive vaginal bleeding, and/or abdominal pain. Discharge Disposition: HOME SELF-CARE
[2017-07-10] MEDS: SENNOSIDES-DOCUSATE SODIUM 1 EACH TAB PO SCH (08:12)
[2017-07-10 08:39] VITALS: BP 121/78; PULSE 80; RESP 16; TEMP 98
[2017-07-10] MEDS: IBUPROFEN 600 MG TAB PO PRN (10:42)
== END 2017-07-10 13:15 | disposition home or self-care (01) | DRG 766 ==
LOC: FBPOP 21:40 → 4FBP 22:02
PROVIDERS: ADMIT Obstetrics & Gynecology; ATTEND Obstetrics & Gynecology
PROC: 00HU33Z Insertion of Infusion Device into Spinal Canal, Percutaneous Approach (ICD-10-PCS; 2017-07-06)
PROC: 3E0R3CZ (ICD-10-PCS; 2017-07-06)
PROC: 3E0134Z Introduction of Serum, Toxoid and Vaccine into Subcutaneous Tissue, Percutaneous Approach (ICD-10-PCS; 2017-07-07)
PROC: 10D00Z1 Extraction of Products of Conception, Low, Open Approach (ICD-10-PCS; principal; 2017-07-07 08:00)
DX: O33.9 Maternal care for disproportion, unspecified (principal); Z23 Encounter for immunization; Z37.0 Single live birth; Z3A.39 39 weeks gestation of pregnancy; Z79.899 Other long term (current) drug therapy
CPT/HCPCS: 59025; 84112; 85025; 88307; 90707; 99213

== ENCOUNTER 2018-08-22 05:30 | Inpatient (IN) | payer BC, OTHER ==
--- NOTE | 2018-08-21 08:09 | P.HPOB ---
History of Present Illness H&P Date: 08/21/18 Chief Complaint: Elective repeat section and permanent sterilization This patient is a pleasant 28-year-old 3 para 1 female estimated date of confinement 08/28/2018 estimated gestational age 39 and one sevenths weeks who presents to labor and delivery for requested repeat section was also requesting permanent sterilization. Patient's care has been uncomplicated. She had a previous section after pushing for 1 hour and no descent and therefore as requested repeat. Patient also desires tubal ligation. Review of Systems Gastrointestinal: Reports heartburn Genitourinary: Reports Menstruation: Reports amenorrhea Past Medical History Past Medical History: No Reported History History of Any Multi-Drug Resistant Organisms: None Reported Past Surgical History: Section Additional Past Surgical History / Comment(s): Dilation and curettage. Past Anesthesia/Blood Transfusion Reactions: No Reported Reaction Past Psychological History: No Psychological Hx Reported Smoking Status: Never smoker Past Alcohol Use History: None Reported Past Drug Use History: None Reported - Past Family History Mother Family Medical History: Congestive Heart Failure (CHF), Diabetes Mellitus Father Family Medical History: Diabetes Mellitus Medications and Allergies Home Medications Medication Instructions Recorded Confirmed Type Pua-Pfca-Szhnt Acid 1 cap PO DAILY 04/25/17 07/06/17 History [-U Capsule (formulary)] Acetaminophen-Codeine 300-30mg 1 - 2 each PO Q4HR PRN #30 tab 07/10/17 Rx [Tylenol w/codeine #3] Ibuprofen [Motrin] 600 mg PO Q6HR PRN #40 tab 07/10/17 Rx Allergies Allergy/AdvReac Type Severity Reaction Status Date / Time No Known Allergies Allergy Verified 07/06/17 21:47 Exam - OBG Physical Exam Abdomen: bowel sounds normal, no diffuse tenderness, no bruit present, no guarding noted, no hepatomegaly, no splenomegaly, no mass Vulva: both: normal Vagina: normal moisture, no discharge Cervix: no lesion, no discharge Uterus: enlarged (Fundal height is 37 cm) Results blood work shows she is A positive, rubella immune, RPR nonreactive, HIV nonreactive, hepatitis B is negative, Glucola was abnormal with a normal three-hour gtt., group B strep was negative, ultrasounds have been normal. Assessment and Plan Assessment: This patient is a pleasant 28-year-old 3 para 1 female 9 and one sevenths weeks gestation who is admitted for repeat section and also requesting permanent sterilization. Patient understands a tubal ligation is considered permanent however there is a failure rate of approximately 5 per thousand procedures done. She understands she does become she is a 50 % chance of a tubal or ectopic . Patient was seen in surgery itself has risks including risks of infection, bleeding, possible injury bowel, bladder , vessels, and/or other organs. All the patient's questions are answered written consent is obtained. Plan is repeat section and bilateral partial salpingectomy. (1) Third trimester Status: Acute Code(s): Z34.93 - ENCNTR FOR SUPRVSN OF NORMAL PREG, UNSP, THIRD TRIMESTER SNOMED Code(s): 83636891 (2) Previous delivery affecting Status: Acute Code(s): O34.219 - MATERNAL CARE FOR UNSP TYPE SCAR FROM PREVIOUS DEL SNOMED Code(s): 582734403 (3) Family planning Status: Acute Code(s): Z30.09 - ENCOUNTER FOR OTH GENERAL CNSL AND ADVICE ON CONTRACEPTION SNOMED Code(s): 258599576
[2018-08-22] MEDS ORDERED: LACTATED RINGERS 1,000 ML IV SCH (06:01)
[2018-08-22] MEDS ORDERED: LACTATED RINGERS 1,000 ML IV ONE (06:01)
[2018-08-22] MEDS ORDERED: CITRIC ACID-SODIUM CITRATE 15 ML CUP PO ONE (06:01)
[2018-08-22 06:15] VITALS: BMI 29.2
[2018-08-22 06:20] LABS: Basophils % (A) 0 %; Eosinophils # (A) 0.1 k/uL (0-0.7); Eosinophils % (A) 1 %; HCT 40.2 % (34.0-46.0); HGB 13.4 gm/dL (11.4-16.0); Lymphocytes % (A) 20 %; MCH 29.3 pg (25.0-35.0); MCHC 33.3 g/dL (31.0-37.0); Mean Platelet Volume 7.9; Monocytes # (A) 0.5 k/uL (0-1.0); Monocytes % (A) 5 %; Neutrophils # (A) 7.1 k/uL (1.3-7.7); Neutrophils % (A) 72 %; Platelet Count 225 k/uL (150-450); RBC 4.57 m/uL (3.80-5.40); RDW 13.1 % (11.5-15.5)
[2018-08-22] MEDS ORDERED: ceFAZolin IN SWFI 2 GM/20 ML SYRINGE IVP ONE (07:15)
[2018-08-22] MEDS ORDERED: ePHEDrine SULFATE/0.9% NACL/PF 50 MG/5 ML SYRINGE IV ONE (07:50)
[2018-08-22] MEDS ORDERED: NALBUPHINE 10 MG/ML VIAL (10ML MDV) ONE (07:50)
[2018-08-22] MEDS ORDERED: KETOROLAC 30 MG/ML 1 ML VIAL ONE (07:50)
[2018-08-22] MEDS ORDERED: MORPHINE SULFATE (PF) 0.3 MG/0.3 ML SYR ONE (07:50)
[2018-08-22] MEDS ORDERED: OXYTOCIN 10 UNIT/ML 1 ML VIAL ONE (07:50)
[2018-08-22] MEDS ORDERED: ONDANSETRON 4 MG/2 ML VIAL ONE (07:50)
[2018-08-22] MEDS ORDERED: SIMETHICONE 80 MG CHEWABLE PO PRN (08:30)
[2018-08-22] MEDS ORDERED: diphenhydrAMINE 50 MG/ML 1 ML VIAL IVP PRN (08:30)
[2018-08-22] MEDS ORDERED: LANOLIN CREAM 5 GM TUBE TOPICAL PRN (08:30)
[2018-08-22] MEDS ORDERED: OXYTOCIN 20 UNITS/1000 ML NS 1,000 ML IV SCH (08:30)
[2018-08-22] MEDS ORDERED: KETOROLAC 30 MG/ML 1 ML VIAL IVP PRN (08:30)
[2018-08-22] MEDS ORDERED: HYDROcodone/APAP 5-325MG 1 EACH TAB PO PRN (08:30)
[2018-08-22] MEDS ORDERED: IBUPROFEN 600 MG TAB PO PRN (08:30)
[2018-08-22] MEDS ORDERED: METOCLOPRAMIDE 5 MG/ML 2 ML VIAL IVP PRN (08:30)
[2018-08-22] MEDS ORDERED: NALOXONE 0.4 MG/ML 1 ML VIAL IV PRN (08:30)
[2018-08-22] MEDS ORDERED: ONDANSETRON 4 MG/2 ML VIAL IVP PRN (08:30)
[2018-08-22] MEDS ORDERED: ZOLPIDEM 5 MG TAB PO PRN (08:30)
[2018-08-22] MEDS ORDERED: diphenhydrAMINE 25 MG CAP PO PRN (08:30)
--- NOTE | 2018-08-22 09:00 | P.OP ---
Date of Procedure: 08/22/18 Preoperative Diagnosis: #1: 39 0/7 weeks . #2: Previous section desires repeat. #3 : Multiparity desires permanent sterilization. Postoperative Diagnosis: Same Procedure(s) Performed: Repeat low transverse section and bilateral partial salpingectomy. Anesthesia: spinal Surgeon: Christian Mark Contracting Officer #1: Suyapa Cabrera Estimated Blood Loss (ml): 400 Pathology: other (Bilateral fallopian tube segments) Condition: stable Disposition: floor Indications for Procedure: Please see dictated H&P for intimate details of this patient's admission. Brief summary this is a pleasant 28-year-old 3 para 1 female estimated gestational age 39 and one sevenths weeks gestation who is admitted to labor and delivery for elective repeat section and permanent sterilization. Patient does understand the surgery and risks including risks of infection, bleeding, possible injury to bowel, bladder, vessels, and other organs. All the patient's questions are answered and a written consent is obtained. Operative Findings: This is a vigorous viable female Apgars 9 and 9 delivery time is 0814 hrs. Description of Procedure: This patient has a Jarrell catheter placed to straight drain. She is subsequently taken to the operating room where she sat up and spinal anesthesia is administered without incident. With an adequate level of anesthesia she has abdominal prep and drape. Patient does have a keloid and this is excised with a scalpel. A second scalpel is taken down the fascia and the fascia scored with a knife. Fascial incision extended bilaterally using the Miller scissors. Fascia is then dissected off the rectus muscles using the Miller scissors. The rectus muscles are and the peritoneum identified and entered sharply. Peritoneal incision extended superior and inferior without difficulty. Bladder blade is then placed. The bladder peritoneum was taken off the lower uterine segment sharply. Scalpels then taken a low transverse uterine incision is then made. Using a hemostat we into the uterine cavity bluntly. There is loss of clear fluid. This is then extended bluntly and infant is delivered through the incision with fundal pressure mouth and nares are bulb suctioned. There is no evidence of a nuchal cord. We then have deliver the rest this 's body. This is a vigorous viable female Apgars are 9 and 9 delivery time is 0814 hrs. after delivery of the the umbilical cord is doubly clamped and cut appears to be trivascular. The placenta is then manually extracted intact. Uterus is then externalized and uterine incision demarcated with Franco clamps is then closed using 0 Vicryl running locked fashion 2 layers excellent hemostasis is noted the bladder peritoneum is then closed using a 3-0 Vicryl. Then turned my attention the left fallopian tube approximately 4 cm from the cornual insertion a small window made to the mesial salpinx. Using a 2-0 silk I doubly ligate a knuckle the tube in about 2 cm segment tube was excised and handed off to pathology cauterization is done of the tubal ends. Excellent hemostasis is noted. A similar technique is done on the right side with similar results. With this done the uterus placed back into the abdomen as fluid is removed. The parietal peritoneum was then closed using 0 Vicryl running fashion. The rectus muscles are reapproximated in 0 Vicryl interrupted fashion. Fascia is then closed 0 PDS. Subcutaneous tissues and closed using a 3-0 Vicryl. Skin is then closed using a 4-0 Vicryl. Of note we did have a 6-0 Prolene needle that was lost on the table after closure and this could not be found x-ray will be ordered. All counts otherwise arc correct and there are no complications. Infant and mother are stable in the birthing suite.
[2018-08-22] MEDS ORDERED: DIPH,PERTUS(ACELL)TETVAC-LF 0.5 ML VIAL IM ONE (09:29)
[2018-08-22] MEDS ORDERED: INFLUENZA VACCINE (6 MOS+) 60 MCG/0.5 ML SYRINGE IM ONE (09:29)
--- NOTE | 2018-08-22 10:32 | XR ---
EXAMINATION TYPE: XR abdomen 1V DATE OF EXAM: 08/22/2018 COMPARISON: NONE HISTORY: Post rule out retained surgical needle TECHNIQUE: One view abdominal series FINDINGS: The osseous structures are intact. The bowel gas pattern is nonspecific. Air in the pelvis likely is related to recent surgery. No metallic foreign body overlying the pelvis. Bowel content seen in the upper abdomen and lower abdomen. 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 IMPRESSION: 1. Free air within the pelvis compatible with recent surgery. No metallic foreign body identified.
[2018-08-22] MEDS: SENNOSIDES-DOCUSATE SODIUM 1 EACH TAB PO SCH ×2 (20:07)
[2018-08-22 20:47] VITALS: RESP 16
[2018-08-22] MEDS: LACTATED RINGERS 1,000 ML IV SCH (20:48)
[2018-08-23] MEDS: LACTATED RINGERS 1,000 ML IV SCH (00:18)
--- NOTE | 2018-08-23 06:32 | P.PNOBGPC ---
Subjective - Subjective Patient reports: Reports appetite normal, Reports voiding normally, Reports pain well controlled, Reports ambulating normally : doing well Objective - Vital Signs Latest vital signs: Vital Signs Temp Pulse Resp BP Pulse Ox 08/23/18 04:00 97.8 F 70 16 108/59 97 08/22/18 23:51 98.0 F 68 16 111/66 97 08/22/18 20:10 97.9 F 72 16 115/60 96 08/22/18 16:01 98 F 61 14 109/64 95 08/22/18 11:00 57 L 18 96/51 08/22/18 10:30 68 16 108/56 08/22/18 09:55 62 16 100/59 08/22/18 09:45 66 17 111/58 98 08/22/18 09:29 69 17 102/58 97 08/22/18 09:15 71 16 106/62 95 08/22/18 09:00 96.8 F L 59 L 16 99/58 99 Intake and Output 08/22/18 08/22/18 08/23/18 14:59 22:59 06:59 Output Total 531 451 2575 Balance -500 -300 -1000 Output: Urine 296 335 5496 Straight 1000 - Exam Lungs: bilateral: normal Chest: Normal S1, Normal S2 Extremities: Present: normal Abdomen: Present: normal appearance, soft. Absent: distention, tenderness Incision: Present: normal, dry, intact Uterus: Present: normal, firm Assessment and Plan Assessment: Post operative day #1. Patient is resting without complaints. Vital signs are stable and she is afebrile. Uterus is firm nontender she's having normal lochia. Incision is intact and dry and healing well. CBC is pending. My impression this is a normal postoperative course. Plan is to continue ambulation, advance diet, check a CBC, and continue routine postoperative care. (1) Third trimester Current Visit: No Status: Acute Code(s): Z34.93 - ENCNTR FOR SUPRVSN OF NORMAL PREG, UNSP, THIRD TRIMESTER SNOMED Code(s): 29423007 (2) Previous delivery affecting Current Visit: No Status: Acute Code(s): O34.219 - MATERNAL CARE FOR UNSP TYPE SCAR FROM PREVIOUS DEL SNOMED Code(s): 581235711 (3) Family planning Current Visit: No Status: Acute Code(s): Z30.09 - ENCOUNTER FOR OTH GENERAL CNSL AND ADVICE ON CONTRACEPTION SNOMED Code(s): 865158125
[2018-08-23 08:27] LABS: Basophils % (A) 0 %; Eosinophils # (A) 0.1 k/uL (0-0.7); Eosinophils % (A) 1 %; HCT 40.9 % (34.0-46.0); HGB 13.5 gm/dL (11.4-16.0); Lymphocytes # (A) 1.3 k/uL (1.0-4.8); Lymphocytes % (A) 10 %; MCH 29.3 pg (25.0-35.0); MCHC 33.1 g/dL (31.0-37.0); MCV 88.5 fL (80.0-100.0); Mean Platelet Volume 8.2; Monocytes # (A) 0.6 k/uL (0-1.0); Monocytes % (A) 5 %; Neutrophils # (A) 10.8 k/uL (1.3-7.7); Neutrophils % (A) 84 %; Platelet Count 204 k/uL (150-450); RBC 4.62 m/uL (3.80-5.40); RDW 13.1 % (11.5-15.5); WBC 12.9 k/uL (3.8-10.6)
[2018-08-23] MEDS: SENNOSIDES-DOCUSATE SODIUM 1 EACH TAB PO SCH ×2 (08:34→20:15)
[2018-08-23] MEDS: ACETAMINOPHEN TAB 325 MG TAB PO PRN (15:51)
--- NOTE | 2018-08-23 17:24 | P.PN ---
Progress Note - Text Progress Note Date: 08/23/18 Postoperative day 1 status post section under spinal anesthesia, and intrathecal morphine given for postoperative analgesia, patient doing well, there is no anesthesia related complications, Patient had no headache, vital signs stable , Assessment and plan= postop day 1 status post , doing well there is no anesthesia related complication.
[2018-08-24] MEDS: LACTATED RINGERS 1,000 ML IV SCH (00:10)
[2018-08-24] MEDS: SENNOSIDES-DOCUSATE SODIUM 1 EACH TAB PO SCH (07:39)
[2018-08-24] MEDS: ACETAMINOPHEN TAB 325 MG TAB PO PRN ×2 (07:49→12:37)
[2018-08-24 09:49] VITALS: BP 117/70; PULSE 62; TEMP 97.8
--- NOTE | 2018-08-24 11:23 | P.DS ---
Providers Date of admission: 08/22/18 05:30 Expected date of discharge: 08/24/18 Attending physician: Christian Mark Primary care physician: Christian Mark - Discharge Diagnosis(es) (1) S/P repeat low transverse Current Visit: Yes Status: Acute Hospital Course: Patient presented for repeat low transverse . She underwent this procedure without complication. She'll be discharged home postoperative day #2 in stable condition to follow-up with Dr. Mark in one week. Plan - Discharge Summary New Discharge Prescriptions: New HYDROcodone/APAP 5-325MG [Cisco 5-325] 1 - 2 each PO Q4HR PRN #36 tab PRN Reason: Moderate Pain Ibuprofen [Motrin] 600 mg PO Q6HR PRN #40 tab PRN Reason: Mild Pain Or Fever >= 100.5 No Action Bdm-Llro-Ktrrn Acid [-U Capsule (formulary)] 1 cap PO DAILY Discharge Medication List Era-Mpya-Sayyy Acid [-U Capsule (formulary)] 1 cap PO DAILY 03/07 [History] HYDROcodone/APAP 5-325MG [Cisco 5-325] 1 - 2 each PO Q4HR PRN #36 tab 08/23/18 [ Rx] Ibuprofen [Motrin] 600 mg PO Q6HR PRN #40 tab 08/23/18 [Rx] Follow up Appointment(s)/Referral(s): Christian Mark MD [Primary Care Provider] - 09/02/18 8:30 am (Patient also has a post visit on October 04 at 11:15 AM.) Patient Instructions/Handouts: (DC) Activity/Diet/Wound Care/Special Instructions: No strenuous activities or heavy lifting for 6 weeks. No intercourse or anything per vagina for 6 weeks. Please call if any fever, chills, excessive vaginal bleeding, and/or abdominal pain. Discharge Disposition: HOME SELF-CARE
== END 2018-08-24 13:45 | disposition home or self-care (01) | DRG 785 ==
LOC: 4FBP 05:30
PROVIDERS: ADMIT Obstetrics & Gynecology; ATTEND Obstetrics & Gynecology
PROC: 0UB70ZZ Excision of Bilateral Fallopian Tubes, Open Approach (ICD-10-PCS; 2018-08-22)
PROC: 10D00Z1 Extraction of Products of Conception, Low, Open Approach (ICD-10-PCS; principal; 2018-08-22 08:00)
DX: O34.211 Maternal care for low transverse scar from previous cesarean delivery (principal); Z37.0 Single live birth; Z3A.39 39 weeks gestation of pregnancy; Z30.2 Encounter for sterilization; Z82.49 Family history of ischemic heart disease and other diseases of the circulatory system; Z83.3 Family history of diabetes mellitus
CPT/HCPCS: 74018; 85025; 86850; 86900; 86901; 88302; 90471; 90472; 90686; 90715